=== PATIENT | female | born 1975 | race Caucasian/White ===

== ENCOUNTER → 2018-06-11 | Outpatient (CLI) | payer OTHER ==
--- NOTE | 2018-06-11 13:16 | Diagnostic Imaging Report ---
INDICATION: Routine screening. TECHNIQUE: No prior mammograms are available for comparison. This is a baseline study. TECHNIQUE: 2D and 3D bilateral screening mammography was performed with CAD. FINDINGS: Scattered fibroglandular densities are identified bilaterally. There is a grouping of calcifications in the upper and outer aspect of the right breast at posterior depth which are indeterminate. Additional views are recommended. The left breast is unremarkable. The axillae are unremarkable. No mass is identified. IMPRESSION: Right breast microcalcifications. Additional views including magnification and ML views are recommended for further evaluation. ACR BI-RADS Category 0: Incomplete. (Needs additional imaging evaluation). Result letter will be mailed to the patient. Note: At least 10% of breast cancer is not imaged by mammography. Dictated by: Dictated on workstation # [id number]
== END ==
LOC: RAD 08:01
PROVIDERS: ATTEND Obstetrics & Gynecology
DX: Z12.31 Encounter for screening mammogram for malignant neoplasm of breast (principal); R92.0 Mammographic microcalcification found on diagnostic imaging of breast
CPT/HCPCS: 77067

== ENCOUNTER → 2018-06-18 | Outpatient (CLI) | payer OTHER ==
--- NOTE | 2018-06-18 17:58 | Diagnostic Imaging Report ---
Indication: Right breast calcifications. The patient presents for additional views. Correlation is made with recent screening study from 06/11/2018. Technique: Unilateral right 2-D and 3-D diagnostic mammography was performed including 90 degree lateral view, exaggerated CC view as well as magnification ML and exaggerated CC. Findings: There is a cluster of microcalcifications in the upper outer right breast at posterior depth. Many calcifications are somewhat benign in appearance however there are some microcalcifications which are indeterminant. Tissue sampling would be recommended. No associated soft tissue mass is seen. Impression: BI-RADS 4. Indeterminate cluster of microcalcifications in the upper and outer right breast at posterior depth. Tissue sampling is recommended. These would be amenable to stereotactic biopsy. ACR BI-RADS Category 4: Suspicious abnormality. Result letter will be mailed to the patient. Note: At least 10% of breast cancer is not imaged by mammography. Dictated by: Dictated on workstation # [id number]
== END ==
LOC: RAD 13:58
PROVIDERS: ATTEND Obstetrics & Gynecology
DX: R92.0 Mammographic microcalcification found on diagnostic imaging of breast (principal)

== ENCOUNTER → 2018-07-04 | Outpatient (CLI) | payer OTHER ==
[~2018-07-04] VITALS: Ht 154.9 cm; Wt 57.2 kg
[~2018-07-04] MED LIST: LIDOCAINE 1% INJ 20 ML 20 ML VIAL INJ ONE; LIDOCAINE 1% INJ 20 ML 20 ML VIAL ONE
--- NOTE | 2018-07-04 13:41 | Diagnostic Imaging Report ---
INDICATION: Right breast calcifications. Patient presents for stereotactic biopsy. PROCEDURE: The patient was brought to the stereotactic suite and positioned in a sitting upright position. The right breast was placed in a lateral medial position. Imaging was performed. The cluster of microcalcifications in the far upper and outer right breast were stereotactically targeted. The skin of the left breast was then prepped and draped in usual sterile fashion. A small amount of 1% lidocaine was utilized for local anesthesia. The 8-gauge stereotactic core needle was advanced into the right breast and placed per coordinates. Four core biopsies were obtained. Specimen radiograph was obtained demonstrating numerous microcalcifications in all four samples. Marker clip was then deployed. The needle was withdrawn and hemostasis was obtained using manual compression. Followup mammogram demonstrates a marker clip in the upper and outer right breast at posterior depth. IMPRESSION: Successful stereotactic core biopsy of the microcalcifications in the upper outer right breast, as described. Pathology results are currently pending. Dictated by: Dictated on workstation # [id number]
== END ==
LOC: RAD 10:24
PROVIDERS: ATTEND Obstetrics & Gynecology
DX: N60.41 Mammary duct ectasia of right breast (principal); R92.1 Mammographic calcification found on diagnostic imaging of breast
CPT/HCPCS: 19081; 88305

== ENCOUNTER 2019-04-21 10:51 | Emergency (ER) | payer OTHER ==
[~2019-04-21] VITALS: Ht 61 cm; Wt 59.0 kg
[2019-04-21] MEDS ORDERED: LIDOCAINE 1% INJ 20 ML 20 ML VIAL ONE (11:17)
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
[2019-04-21] MEDS ORDERED: LIDOCAINE 1% INJ 20 ML 20 ML VIAL INJ ONE (11:30)
[2019-04-21 12:00] VITALS: BP 116/53
[2019-04-21] MEDS ORDERED: TETANUS,DIPTH,PERTUSS P/F (BOOSTRIX) 0.5 ML VIAL IM ONE (12:00)
== END 2019-04-21 12:00 | disposition home or self-care (01) ==
LOC: EDUNIT# 10:51 → ER FS 10:52
DX: S81.012A Laceration without foreign body, left knee, initial encounter (principal); V49.40XA Driver injured in collision with unspecified motor vehicles in traffic accident, initial encounter
CPT/HCPCS: 90715; 99282

== ENCOUNTER → 2020-08-31 | Outpatient (CLI) | payer OTHER ==
--- NOTE | 2020-08-31 15:38 | Diagnostic Imaging Report ---
INDICATION: Routine screening. COMPARISON: 06/11/2018. TECHNIQUE: 2D and 3D bilateral screening mammography was performed with CAD. FINDINGS: Scattered fibroglandular densities are identified bilaterally. Benign calcifications in the upper posterior right breast are stable. No new mass or malignant appearing microcalcifications are seen. The axillae are unremarkable. IMPRESSION: No mammographic features suspicious for malignancy are identified. ACR BI-RADS Category 2: Benign findings. Result letter will be mailed to the patient. Note: At least 10% of breast cancer is not imaged by mammography. Dictated by: Dictated on workstation # [id number]
== END ==
LOC: RAD 11:01
PROVIDERS: ATTEND Obstetrics & Gynecology
DX: Z12.31 Encounter for screening mammogram for malignant neoplasm of breast (principal)
CPT/HCPCS: 77063; 77067